=== PATIENT | male | born 1975 | race Caucasian/White ===

== ENCOUNTER 2019-06-20 21:51 | Inpatient (IN) | payer MEDICAID, OTHER ==
[~2019-06-20] VITALS: Ht 210.8 cm; Wt 95.0 kg
[~2019-06-20 21:51] MED LIST: BLOO-1101 MC; LANT3I SC; NOVO3I SC; [UNRECOGNIZED DRUG - CODE] MC
[2019-06-20] MEDS ORDERED: KETOROLAC 30 MG INJ IM STA (23:01)
[2019-06-20] MEDS ORDERED: SODIUM CHLORIDE 0.9% 1L BAG IV* STA (23:08)
[2019-06-21] VITALS (24 sets, daily range): BP systolic 97–126; BP diastolic 60–78; PULSE 85–108; RESP 10–19; Ht 210.8 cm; Wt 95.0 kg
[2019-06-21] MEDS ORDERED: INSULIN LISPRO 100 UNIT/ML VIAL SC STA (00:13)
[2019-06-21] MEDS ORDERED: VANCOMYCIN 1 GM (PMX) 250 ML IVPB ONE (01:00)
[2019-06-21] MEDS ORDERED: SOD CHLORIDE 0.9% IV ONE (01:00)
[2019-06-21] MEDS ORDERED: PIPER-TAZO 3.375 GM IV (PMX) 100 ML IVPB ONE (01:00)
[2019-06-21] MEDS ORDERED: IOHEXOL 300MG/ML 150 ML BTL ONE (01:34)
[2019-06-21] MEDS ORDERED: SOD CHLORIDE 0.9% 100 ML ONE (01:34)
[2019-06-21] MEDS ORDERED: morphine 2 MG INJ IV ONE (03:34)
[2019-06-21] MEDS ORDERED: ONDANSETRON 4 MG INJ IV ONE (03:34)
[2019-06-21] MEDS ORDERED: ONDANSETRON 4 MG INJ IV PRN ×2 (04:30→15:30)
[2019-06-21] MEDS ORDERED: NACL 0.9% 3 ML SYG IV SCH (04:30)
[2019-06-21] MEDS ORDERED: ACETAMINOPHEN 325 MG TAB PO PRN (04:30)
[2019-06-21] MEDS: SOD CHLORIDE 0.9% 1,000 ML IV SCH ×2 (06:43→12:28)
[2019-06-21] MEDS ORDERED: GLUCOSE GEL 15 GRAM TUBE BUCCAL PRN (07:30)
[2019-06-21] MEDS ORDERED: DEXTROSE 50% 50 ML SYRINGE IV PRN ×2 (07:30)
[2019-06-21] MEDS ORDERED: GLUCAGON 1 MG INJ IM PRN (07:30)
[2019-06-21] MEDS ORDERED: GLUCOSE GEL 15 GRAM TUBE PO PRN ×2 (07:30)
[2019-06-21] MEDS: morphine 2 MG INJ IV PRN (09:35)
[2019-06-21] MEDS: MEROPENEM 500MG/50 ML (PMX) 50 ML IVPB SCH ×2 (09:35→20:09)
[2019-06-21] MEDS: INSULIN ASPART [NOVOLOG] 3 ML PEN SC SCH ×5 (09:45→20:12)
[2019-06-21] MEDS ORDERED: NEOSTIGMINE 3 MG/3 ML SYRINGE ONE (14:30)
[2019-06-21] MEDS ORDERED: ONDANSETRON 4 MG INJ ONE (14:30)
[2019-06-21] MEDS ORDERED: FENTAnyl 50 MCG/ML VIAL ONE (14:30)
[2019-06-21] MEDS ORDERED: MIDAZOLAM 1 MG/ML 2 ML INJ ONE (14:30)
[2019-06-21] MEDS ORDERED: SUCCINYLCHOLINE CHLORIDE 100 MG/5 ML SYG IV ONE (14:30)
[2019-06-21] MEDS ORDERED: GLYCOPYRROLATE 0.4 MG INJ ONE (14:30)
[2019-06-21] MEDS ORDERED: LIDOCAINE 2% (SDV) 5 ML INJ ONE (14:30)
[2019-06-21] MEDS ORDERED: PROPOFOL 200 MG INJ ONE (14:30)
[2019-06-21] MEDS ORDERED: FAMOTIDINE 20 MG INJ ONE (14:31)
[2019-06-21] MEDS ORDERED: POLYMYXIN/BACITRACIN 1L IRRIG IRR ONE (15:08)
[2019-06-21] MEDS ORDERED: HYDROmorphONE 2 MG/ML SYG ONE (15:13)
[2019-06-21] MEDS ORDERED: KETOROLAC 30 MG INJ ONE (15:29)
[2019-06-21] MEDS ORDERED: KETAMINE (50 MG/ML) 10 ML VIAL ONE (15:29)
[2019-06-21] MEDS ORDERED: FENTAnyl 50 MCG/ML VIAL IV PRN ×2 (15:30)
[2019-06-21] MEDS ORDERED: HYDROmorphONE 1 MG/5 ML IV SYRINGE IV PRN ×2 (15:30)
[2019-06-21] MEDS ORDERED: METOCLOPRAMIDE 10 MG INJ IV PRN (15:30)
[2019-06-21] MEDS ORDERED: OXYCODONE/ACETAMINOPHEN (5/325) TAB PO PRN ×2 (15:30)
[2019-06-21] MEDS ORDERED: LABETALOL HCL 20MG INJ IV PRN (15:30)
[2019-06-21] MEDS ORDERED: ACETAMINOPHEN 1000MG/100ML IV 100 ML IVPB ONE (17:00)
[2019-06-21] MEDS ORDERED: INSULIN GLARGINE [LANTus] (100 UNITS/ML) SYG SC SCH (20:00)
[2019-06-22] MEDS: ACCU-CHEK XX SCH (02:00)
[2019-06-22] MEDS: SOD CHLORIDE 0.9% 1,000 ML IV SCH ×2 (02:00→09:28)
[2019-06-22] MEDS ORDERED: INSULIN ASPART [NOVOLOG] 3 ML PEN SC ONE (02:50)
[2019-06-22] MEDS: morphine 2 MG INJ IV PRN ×3 (02:55→21:55)
[2019-06-22] MEDS ORDERED: ACCU-CHEK XX ONE (05:00)
[2019-06-22] MEDS: HYDROCODONE/APAP (5/325) TAB PO PRN ×2 (05:30→13:59)
[2019-06-22 07:27] VITALS: BP 116/64; PULSE 103; RESP 15
[2019-06-22] MEDS: INSULIN ASPART [NOVOLOG] 3 ML PEN SC SCH ×7 (08:22→21:00)
[2019-06-22] MEDS: MEROPENEM 500MG/50 ML (PMX) 50 ML IVPB SCH ×2 (09:28→20:47)
[2019-06-22] MEDS ORDERED: DAKINS 0.0125%(1/40) 473 ML SOLUTION TP ONE (13:00)
[2019-06-22] MEDS ORDERED: POTASSIUM PHOSPHATE 20 MEQ in SOD CHLORIDE 0.9% 250 ML IVPB ONE (13:00)
[2019-06-22 15:00] VITALS: BP 110/67; PULSE 94; RESP 16
[2019-06-22] MEDS ORDERED: INSULIN ASPART [NOVOLOG] 3 ML PEN SC SCH (17:55)
[2019-06-22 19:58] VITALS: BP 118/70; PULSE 92; RESP 18
[2019-06-22] MEDS ORDERED: INSULIN GLARGINE [LANTus] (100 UNITS/ML) SYG SC SCH (20:00)
[2019-06-22] MEDS: INSULIN GLARGINE [LANTus] (100 UNITS/ML) SYG SC SCH (20:57)
[2019-06-23] MEDS: SOD CHLORIDE 0.9% 1,000 ML IV SCH ×3 (00:41→16:00)
[2019-06-23] MEDS: HYDROCODONE/APAP (5/325) TAB PO PRN ×2 (00:45→18:17)
[2019-06-23] MEDS: ACCU-CHEK XX SCH (02:00)
[2019-06-23 02:04] VITALS: BP 123/69; PULSE 99; RESP 18
[2019-06-23 07:37] VITALS: BP 120/68; PULSE 112; RESP 18
[2019-06-23] MEDS: INSULIN ASPART [NOVOLOG] 3 ML PEN SC SCH ×7 (09:11→20:35)
[2019-06-23] MEDS: DAKINS 0.0125%(1/40) 473 ML SOLUTION TP SCH (09:12)
[2019-06-23] MEDS: MEROPENEM 500MG/50 ML (PMX) 50 ML IVPB SCH ×2 (09:16→22:14)
[2019-06-23] MEDS: metroNIDAZOLE 500 MG/NS (PMX) 100 ML IVPB SCH ×3 (12:04→23:08)
[2019-06-23] MEDS: morphine 2 MG INJ IV PRN (12:10)
[2019-06-23 14:12] VITALS: BP 123/70; PULSE 101; RESP 18
[2019-06-23] MEDS: INSULIN GLARGINE [LANTus] (100 UNITS/ML) SYG SC SCH (20:34)
[2019-06-23 20:43] VITALS: BP 127/70; PULSE 96; RESP 18
[2019-06-24] MEDS: SOD CHLORIDE 0.9% 1,000 ML IV SCH (01:05)
[2019-06-24] MEDS: ACCU-CHEK XX SCH (01:41)
[2019-06-24 02:10] VITALS: BP 130/80; PULSE 97; RESP 18
[2019-06-24] MEDS: FLUCONAZOLE 200 MG (PMX) 100 ML IVPB SCH (02:30)
[2019-06-24] MEDS: AMPICILLIN/SULB 3 GM/NS (PMX) 100 ML IVPB SCH ×4 (05:07→23:35)
[2019-06-24] MEDS: HYDROCODONE/APAP (5/325) TAB PO PRN ×3 (05:12→23:45)
[2019-06-24 07:24] VITALS: BP 138/81; PULSE 87; RESP 16
[2019-06-24] MEDS: INSULIN ASPART [NOVOLOG] 3 ML PEN SC SCH ×7 (08:38→20:32)
[2019-06-24] MEDS: DAKINS 0.0125%(1/40) 473 ML SOLUTION TP SCH (08:39)
[2019-06-24] MEDS ORDERED: SENNA TAB PO PRN (10:30)
[2019-06-24] MEDS: morphine 2 MG INJ IV PRN (11:42)
[2019-06-24 14:20] VITALS: BP 132/79; PULSE 92; RESP 18
[2019-06-24 20:15] VITALS: BP 115/73; PULSE 86; RESP 18
[2019-06-24 20:20] VITALS: BP 115/73; PULSE 86; RESP 18
[2019-06-24] MEDS: INSULIN GLARGINE [LANTus] (100 UNITS/ML) SYG SC SCH (20:31)
[2019-06-24] MEDS: SENNA TAB PO SCH (20:31)
[2019-06-25] MEDS: FLUCONAZOLE 200 MG (PMX) 100 ML IVPB SCH (01:15)
[2019-06-25] MEDS: ACCU-CHEK XX SCH (02:00)
[2019-06-25] MEDS: AMPICILLIN/SULB 3 GM/NS (PMX) 100 ML IVPB SCH ×4 (05:17→23:27)
[2019-06-25] MEDS: morphine 2 MG INJ IV PRN (07:41)
[2019-06-25 07:44] VITALS: BP 118/75; PULSE 78; RESP 17
[2019-06-25] MEDS: DAKINS 0.0125%(1/40) 473 ML SOLUTION TP SCH (07:44)
[2019-06-25] MEDS: SENNA TAB PO SCH ×2 (08:56→21:00)
[2019-06-25] MEDS: INSULIN ASPART [NOVOLOG] 3 ML PEN SC SCH ×7 (08:59→21:00)
[2019-06-25 14:37] VITALS: BP 114/68; PULSE 84; RESP 20
[2019-06-25] MEDS: HYDROCODONE/APAP (5/325) TAB PO PRN (18:38)
[2019-06-25 19:40] VITALS: BP 119/73; PULSE 83; RESP 18
[2019-06-25] MEDS: INSULIN GLARGINE [LANTus] (100 UNITS/ML) SYG SC SCH (21:37)
[2019-06-26] VITALS (17 sets, daily range): BP systolic 115–148; BP diastolic 73–104; PULSE 73–100; RESP 12–80
[2019-06-26] MEDS: FLUCONAZOLE 200 MG (PMX) 100 ML IVPB SCH (01:05)
[2019-06-26] MEDS: ACCU-CHEK XX SCH (01:14)
[2019-06-26] MEDS: AMPICILLIN/SULB 3 GM/NS (PMX) 100 ML IVPB SCH ×4 (05:10→23:07)
[2019-06-26] MEDS: HYDROCODONE/APAP (5/325) TAB PO PRN ×2 (05:17→22:44)
[2019-06-26] MEDS: DAKINS 0.0125%(1/40) 473 ML SOLUTION TP SCH (08:49)
[2019-06-26] MEDS: SENNA TAB PO SCH ×2 (08:49→22:45)
[2019-06-26] MEDS: INSULIN ASPART [NOVOLOG] 3 ML PEN SC SCH ×6 (08:49→17:50)
[2019-06-26] MEDS: morphine 2 MG INJ IV PRN ×2 (10:19→17:46)
[2019-06-26] MEDS ORDERED: POTASSIUM CHLORIDE 20 MEQ POWDER FOR ORAL SOLN PO ONE (10:30)
[2019-06-26] MEDS ORDERED: HYDROGEN PEROXIDE 118 ML ONE (20:09)
[2019-06-26] MEDS ORDERED: FENTAnyl 50 MCG/ML VIAL ONE (20:24)
[2019-06-26] MEDS ORDERED: PROPOFOL 20 ML ONE (21:15)
[2019-06-26] MEDS ORDERED: LIDOCAINE 100 MG SYRINGE ONE (21:15)
[2019-06-26] MEDS ORDERED: SUCCINYLCHOLINE CHLORIDE 100 MG/5 ML SYG IV ONE (21:15)
[2019-06-26] MEDS ORDERED: ROCURONIUM 50 MG INJ ONE (21:15)
[2019-06-26] MEDS ORDERED: SUGAMMADEX SODIUM 200 MG/2 ML VIAL IV ONE (21:15)
[2019-06-26] MEDS ORDERED: POLYMYXIN/BACITRACIN 1L IRRIG IRR ONE (21:21)
[2019-06-26] MEDS: INSULIN GLARGINE [LANTus] (100 UNITS/ML) SYG SC SCH (22:53)
[2019-06-27] MEDS: ACCU-CHEK XX SCH (00:06)
[2019-06-27 00:37] VITALS: BP 126/78; PULSE 82; RESP 20
[2019-06-27] MEDS: FLUCONAZOLE 200 MG (PMX) 100 ML IVPB SCH (00:42)
[2019-06-27 05:00] VITALS: BP 110/76; PULSE 75; RESP 18
[2019-06-27] MEDS: HYDROCODONE/APAP (5/325) TAB PO PRN ×3 (05:11→22:02)
[2019-06-27] MEDS: AMPICILLIN/SULB 3 GM/NS (PMX) 100 ML IVPB SCH ×4 (05:11→23:10)
[2019-06-27] MEDS: INSULIN ASPART [NOVOLOG] 3 ML PEN SC SCH ×7 (07:20→21:00)
[2019-06-27 08:17] VITALS: BP 115/72; PULSE 73; RESP 19
[2019-06-27] MEDS: SENNA TAB PO SCH ×2 (09:02→20:37)
[2019-06-27] MEDS: morphine 2 MG INJ IV PRN (10:28)
[2019-06-27] MEDS: DAKINS 0.0125%(1/40) 473 ML SOLUTION TP SCH (10:29)
[2019-06-27 13:48] VITALS: BP 114/65; PULSE 78; RESP 18
[2019-06-27 19:50] VITALS: BP 122/70; PULSE 82; RESP 18
[2019-06-27] MEDS: INSULIN GLARGINE [LANTus] (100 UNITS/ML) SYG SC SCH (20:00)
[2019-06-27] MEDS: metroNIDAZOLE 500 MG TAB PO SCH (22:01)
[2019-06-28] MEDS: FLUCONAZOLE 200 MG (PMX) 100 ML IVPB SCH (00:27)
[2019-06-28] MEDS: ACCU-CHEK XX SCH (00:39)
[2019-06-28 02:40] VITALS: BP 128/71; PULSE 71; RESP 18
[2019-06-28] MEDS: metroNIDAZOLE 500 MG TAB PO SCH ×2 (05:26→13:34)
[2019-06-28] MEDS: AMPICILLIN/SULB 3 GM/NS (PMX) 100 ML IVPB SCH ×4 (05:26→23:38)
[2019-06-28] MEDS: HYDROCODONE/APAP (5/325) TAB PO PRN ×2 (05:27→18:42)
[2019-06-28 08:12] VITALS: BP 119/73; PULSE 91; RESP 18
[2019-06-28] MEDS: INSULIN ASPART [NOVOLOG] 3 ML PEN SC SCH ×7 (08:30→21:00)
[2019-06-28] MEDS: SENNA TAB PO SCH ×2 (08:33→20:35)
[2019-06-28] MEDS: morphine 2 MG INJ IV PRN (10:47)
[2019-06-28] MEDS: DAKINS 0.0125%(1/40) 473 ML SOLUTION TP SCH (10:50)
[2019-06-28 15:08] VITALS: BP 122/74; PULSE 88; RESP 18
[2019-06-28 19:58] VITALS: BP 111/70; PULSE 77; RESP 20
[2019-06-28] MEDS: INSULIN GLARGINE [LANTus] (100 UNITS/ML) SYG SC SCH (20:37)
[2019-06-29] MEDS: FLUCONAZOLE 200 MG (PMX) 100 ML IVPB SCH (00:51)
[2019-06-29] MEDS: ACCU-CHEK XX SCH (02:00)
[2019-06-29 02:39] VITALS: BP 118/72; PULSE 72; RESP 20
[2019-06-29] MEDS: AMPICILLIN/SULB 3 GM/NS (PMX) 100 ML IVPB SCH ×4 (06:01→23:36)
[2019-06-29 08:14] VITALS: BP 112/70; PULSE 82; RESP 18
[2019-06-29] MEDS: DAKINS 0.0125%(1/40) 473 ML SOLUTION TP SCH (08:42)
[2019-06-29] MEDS: INSULIN ASPART [NOVOLOG] 3 ML PEN SC SCH ×7 (08:43→20:24)
[2019-06-29] MEDS: SENNA TAB PO SCH ×2 (08:43→20:17)
[2019-06-29 15:09] VITALS: BP 112/63; PULSE 86; RESP 18
[2019-06-29 19:20] VITALS: BP 127/68; PULSE 78; RESP 18
[2019-06-29] MEDS: HYDROCODONE/APAP (5/325) TAB PO PRN (20:17)
[2019-06-29] MEDS: INSULIN GLARGINE [LANTus] (100 UNITS/ML) SYG SC SCH (20:22)
[2019-06-30] MEDS: FLUCONAZOLE 200 MG (PMX) 100 ML IVPB SCH (00:48)
[2019-06-30] MEDS: ACCU-CHEK XX SCH (00:57)
[2019-06-30 02:00] VITALS: BP 103/66; PULSE 70; RESP 18
[2019-06-30] MEDS: AMPICILLIN/SULB 3 GM/NS (PMX) 100 ML IVPB SCH ×4 (05:46→23:55)
[2019-06-30 08:04] VITALS: BP 127/80; PULSE 68; RESP 19
[2019-06-30] MEDS: INSULIN ASPART [NOVOLOG] 3 ML PEN SC SCH ×7 (08:24→21:00)
[2019-06-30] MEDS: DAKINS 0.0125%(1/40) 473 ML SOLUTION TP SCH (08:24)
[2019-06-30] MEDS: SENNA TAB PO SCH ×2 (08:24→21:00)
[2019-06-30 14:05] VITALS: BP 118/68; RESP 18
[2019-06-30] MEDS: HYDROCODONE/APAP (5/325) TAB PO PRN (18:31)
[2019-06-30 19:53] VITALS: BP 116/71; PULSE 76; RESP 18
[2019-06-30] MEDS: INSULIN GLARGINE [LANTus] (100 UNITS/ML) SYG SC SCH (21:27)
[2019-07-01] MEDS: FLUCONAZOLE 200 MG (PMX) 100 ML IVPB SCH (01:09)
[2019-07-01 01:37] VITALS: BP 110/67; PULSE 75; RESP 18
[2019-07-01] MEDS: ACCU-CHEK XX SCH (02:00)
[2019-07-01] MEDS: AMPICILLIN/SULB 3 GM/NS (PMX) 100 ML IVPB SCH ×4 (05:03→23:08)
[2019-07-01 07:29] VITALS: BP 118/72; PULSE 71; RESP 18
[2019-07-01] MEDS: morphine 2 MG INJ IV PRN (07:39)
[2019-07-01] MEDS: SENNA TAB PO SCH ×2 (08:42→20:04)
[2019-07-01] MEDS: INSULIN ASPART [NOVOLOG] 3 ML PEN SC SCH ×7 (08:44→20:04)
[2019-07-01] MEDS: DAKINS 0.0125%(1/40) 473 ML SOLUTION TP SCH (08:46)
[2019-07-01 14:42] VITALS: BP 122/74; PULSE 78; RESP 19
[2019-07-01] MEDS: HYDROCODONE/APAP (5/325) TAB PO PRN (17:55)
[2019-07-01 19:54] VITALS: BP 118/68; PULSE 71; RESP 18
[2019-07-01] MEDS: INSULIN GLARGINE [LANTus] (100 UNITS/ML) SYG SC SCH (20:03)
[2019-07-02] MEDS: FLUCONAZOLE 200 MG (PMX) 100 ML IVPB SCH (00:38)
[2019-07-02] MEDS: ACCU-CHEK XX SCH (02:00)
[2019-07-02 03:18] VITALS: BP 124/74; PULSE 70; RESP 18
[2019-07-02] MEDS: AMPICILLIN/SULB 3 GM/NS (PMX) 100 ML IVPB SCH ×3 (05:37→18:16)
[2019-07-02 08:20] VITALS: BP 123/72; PULSE 72; RESP 18
[2019-07-02] MEDS: INSULIN ASPART [NOVOLOG] 3 ML PEN SC SCH ×7 (08:30→20:34)
[2019-07-02] MEDS: SENNA TAB PO SCH ×2 (08:59→20:33)
[2019-07-02] MEDS: DAKINS 0.0125%(1/40) 473 ML SOLUTION TP SCH (09:00)
[2019-07-02] MEDS: morphine 2 MG INJ IV PRN (12:18)
[2019-07-02 15:38] VITALS: BP 123/70; PULSE 74; RESP 18
[2019-07-02] MEDS: HYDROCODONE/APAP (5/325) TAB PO PRN ×2 (18:20→22:58)
[2019-07-02] MEDS ORDERED: INSULIN GLARGINE [LANTus] (100 UNITS/ML) SYG SC SCH (20:00)
[2019-07-02 20:11] VITALS: BP 121/70; PULSE 74; RESP 20
[2019-07-03] MEDS: AMPICILLIN/SULB 3 GM/NS (PMX) 100 ML IVPB SCH ×5 (00:16→23:45)
[2019-07-03] MEDS: ACCU-CHEK XX SCH (02:00)
[2019-07-03] MEDS: FLUCONAZOLE 200 MG (PMX) 100 ML IVPB SCH (02:35)
[2019-07-03 02:59] VITALS: BP 124/72; PULSE 77; RESP 18
[2019-07-03 03:47] VITALS: BP 122/66; PULSE 61
[2019-07-03] MEDS: HYDROCODONE/APAP (5/325) TAB PO PRN ×2 (06:34→20:24)
[2019-07-03 07:39] VITALS: BP 99/63; PULSE 69; RESP 17
[2019-07-03] MEDS: INSULIN ASPART [NOVOLOG] 3 ML PEN SC SCH ×7 (08:59→20:29)
[2019-07-03] MEDS: SENNA TAB PO SCH ×2 (09:01→20:24)
[2019-07-03 13:50] VITALS: BP 104/62; PULSE 65; RESP 18
[2019-07-03] MEDS: morphine 2 MG INJ IV PRN (14:49)
[2019-07-03] MEDS: DAKINS 0.0125%(1/40) 473 ML SOLUTION TP SCH (14:50)
[2019-07-03 19:40] VITALS: BP 116/72; PULSE 70; RESP 20
[2019-07-03] MEDS: INSULIN GLARGINE [LANTus] (100 UNITS/ML) SYG SC SCH (20:27)
[2019-07-04] MEDS: ACCU-CHEK XX SCH (02:00)
[2019-07-04 02:20] VITALS: BP 104/57; PULSE 70; RESP 18
[2019-07-04] MEDS: AMPICILLIN/SULB 3 GM/NS (PMX) 100 ML IVPB SCH ×3 (05:37→17:47)
[2019-07-04] MEDS: HYDROCODONE/APAP (5/325) TAB PO PRN ×3 (05:39→18:27)
[2019-07-04 08:16] VITALS: BP 104/69; PULSE 74; RESP 18
[2019-07-04] MEDS: FLUCONAZOLE 200 MG TAB PO SCH (08:35)
[2019-07-04] MEDS: SENNA TAB PO SCH ×2 (08:35→21:02)
[2019-07-04] MEDS: INSULIN ASPART [NOVOLOG] 3 ML PEN SC SCH ×7 (08:37→21:00)
[2019-07-04] MEDS: DAKINS 0.0125%(1/40) 473 ML SOLUTION TP SCH (11:43)
[2019-07-04] MEDS: morphine 2 MG INJ IV PRN (11:43)
[2019-07-04 14:39] VITALS: BP 107/65; PULSE 73; RESP 18
[2019-07-04 19:20] VITALS: BP 109/64; PULSE 78; RESP 18
[2019-07-04] MEDS: INSULIN GLARGINE [LANTus] (100 UNITS/ML) SYG SC SCH (21:02)
[2019-07-05] MEDS: AMPICILLIN/SULB 3 GM/NS (PMX) 100 ML IVPB SCH ×4 (00:36→17:31)
[2019-07-05 01:58] VITALS: BP 102/56; PULSE 73; RESP 18
[2019-07-05] MEDS: ACCU-CHEK XX SCH (02:00)
[2019-07-05 08:06] VITALS: BP 120/71; PULSE 75; RESP 18
[2019-07-05] MEDS: SENNA TAB PO SCH ×2 (08:15→20:45)
[2019-07-05] MEDS: HYDROCODONE/APAP (5/325) TAB PO PRN ×2 (08:15→18:54)
[2019-07-05] MEDS: FLUCONAZOLE 200 MG TAB PO SCH (08:15)
[2019-07-05] MEDS: INSULIN ASPART [NOVOLOG] 3 ML PEN SC SCH ×7 (08:48→21:00)
[2019-07-05] MEDS: morphine 2 MG INJ IV PRN (13:18)
[2019-07-05] MEDS: DAKINS 0.0125%(1/40) 473 ML SOLUTION TP SCH (17:31)
[2019-07-05 19:30] VITALS: BP 120/70; PULSE 74; RESP 20
[2019-07-05] MEDS: INSULIN GLARGINE [LANTus] (100 UNITS/ML) SYG SC SCH (20:47)
[2019-07-06] MEDS: AMPICILLIN/SULB 3 GM/NS (PMX) 100 ML IVPB SCH ×4 (01:37→18:20)
[2019-07-06] MEDS: HYDROCODONE/APAP (5/325) TAB PO PRN ×3 (01:40→20:11)
[2019-07-06] MEDS: ACCU-CHEK XX SCH (02:00)
[2019-07-06 02:25] VITALS: BP 108/74; PULSE 77; RESP 20
[2019-07-06] MEDS: INSULIN ASPART [NOVOLOG] 3 ML PEN SC SCH ×7 (07:20→21:00)
[2019-07-06 07:58] VITALS: BP 100/63; PULSE 72; RESP 18
[2019-07-06] MEDS: SENNA TAB PO SCH ×2 (08:44→20:11)
[2019-07-06] MEDS: FLUCONAZOLE 200 MG TAB PO SCH (08:44)
[2019-07-06] MEDS: DAKINS 0.0125%(1/40) 473 ML SOLUTION TP SCH (08:48)
[2019-07-06 14:24] VITALS: BP 107/67; PULSE 66; RESP 22
[2019-07-06] MEDS: morphine 2 MG INJ IV PRN (15:00)
[2019-07-06 19:57] VITALS: BP 117/71; PULSE 75; RESP 18
[2019-07-06] MEDS: INSULIN GLARGINE [LANTus] (100 UNITS/ML) SYG SC SCH (21:14)
[2019-07-07] MEDS: AMPICILLIN/SULB 3 GM/NS (PMX) 100 ML IVPB SCH ×5 (00:30→23:34)
[2019-07-07] MEDS: ACCU-CHEK XX SCH ×2 (02:00→23:43)
[2019-07-07 02:04] VITALS: BP_SYST 102; BP_SYST 90; BP_DIAS 55; BP_DIAS 60; PULSE 84; RESP 18
[2019-07-07] MEDS: HYDROCODONE/APAP (5/325) TAB PO PRN ×2 (06:08→17:57)
[2019-07-07] MEDS: INSULIN ASPART [NOVOLOG] 3 ML PEN SC SCH ×7 (07:20→21:00)
[2019-07-07 07:29] VITALS: BP 102/64; PULSE 78; RESP 18
[2019-07-07] MEDS: FLUCONAZOLE 200 MG TAB PO SCH (08:42)
[2019-07-07] MEDS: SENNA TAB PO SCH ×2 (08:42→21:03)
[2019-07-07] MEDS: DAKINS 0.0125%(1/40) 473 ML SOLUTION TP SCH (08:43)
[2019-07-07] MEDS: morphine 2 MG INJ IV PRN (13:58)
[2019-07-07 15:58] VITALS: BP 113/65; PULSE 73; RESP 18
[2019-07-07] MEDS: INSULIN GLARGINE [LANTus] (100 UNITS/ML) SYG SC SCH (21:05)
[2019-07-08] MEDS: HYDROCODONE/APAP (5/325) TAB PO PRN ×2 (01:14→16:20)
[2019-07-08 02:18] VITALS: BP 105/68; PULSE 74; RESP 18
[2019-07-08] MEDS: AMPICILLIN/SULB 3 GM/NS (PMX) 100 ML IVPB SCH ×3 (05:32→17:37)
[2019-07-08] MEDS: INSULIN ASPART [NOVOLOG] 3 ML PEN SC SCH ×7 (07:20→20:31)
[2019-07-08 07:54] VITALS: BP 104/68; PULSE 70; RESP 18
[2019-07-08] MEDS: morphine 2 MG INJ IV PRN (08:12)
[2019-07-08] MEDS: DAKINS 0.0125%(1/40) 473 ML SOLUTION TP SCH (08:32)
[2019-07-08] MEDS: SENNA TAB PO SCH ×2 (08:39→20:31)
[2019-07-08] MEDS: FLUCONAZOLE 200 MG TAB PO SCH (08:39)
[2019-07-08 13:55] VITALS: BP 104/67; PULSE 71; RESP 18
[2019-07-08 19:48] VITALS: BP 115/68; PULSE 68; RESP 18
[2019-07-08] MEDS: INSULIN GLARGINE [LANTus] (100 UNITS/ML) SYG SC SCH (20:35)
[2019-07-09] MEDS: AMPICILLIN/SULB 3 GM/NS (PMX) 100 ML IVPB SCH ×5 (00:16→23:46)
[2019-07-09] MEDS: ACCU-CHEK XX SCH (01:43)
[2019-07-09 02:07] VITALS: BP 114/72; PULSE 73; RESP 18
[2019-07-09] MEDS: INSULIN ASPART [NOVOLOG] 3 ML PEN SC SCH ×7 (07:20→21:00)
[2019-07-09 08:02] VITALS: BP 126/73; PULSE 72; RESP 18
[2019-07-09] MEDS: FLUCONAZOLE 200 MG TAB PO SCH (08:29)
[2019-07-09] MEDS: SENNA TAB PO SCH ×2 (08:29→20:46)
[2019-07-09] MEDS: HYDROCODONE/APAP (5/325) TAB PO PRN ×2 (08:38→17:38)
[2019-07-09] MEDS: DAKINS 0.0125%(1/40) 473 ML SOLUTION TP SCH (12:45)
[2019-07-09 15:33] VITALS: BP 117/73; PULSE 82; RESP 18
[2019-07-09 19:25] VITALS: BP 108/64; PULSE 70; RESP 20
[2019-07-09] MEDS: INSULIN GLARGINE [LANTus] (100 UNITS/ML) SYG SC SCH (20:00)
[2019-07-09] MEDS ORDERED: INSULIN GLARGINE [LANTus] (100 UNITS/ML) SYG SC ONE (22:00)
[2019-07-10] VITALS (18 sets, daily range): BP systolic 96–131; BP diastolic 60–83; PULSE 62–80; RESP 10–21
[2019-07-10] MEDS: ACCU-CHEK XX SCH ×2 (01:47→23:52)
[2019-07-10] MEDS: AMPICILLIN/SULB 3 GM/NS (PMX) 100 ML IVPB SCH ×3 (05:30→17:49)
[2019-07-10] MEDS: INSULIN ASPART [NOVOLOG] 3 ML PEN SC SCH ×7 (08:48→20:42)
[2019-07-10] MEDS: FLUCONAZOLE 200 MG TAB PO SCH (08:50)
[2019-07-10] MEDS: SENNA TAB PO SCH ×2 (08:50→21:16)
[2019-07-10] MEDS: DAKINS 0.0125%(1/40) 473 ML SOLUTION TP SCH (08:50)
[2019-07-10] MEDS: HYDROCODONE/APAP (5/325) TAB PO PRN (08:54)
[2019-07-10] MEDS ORDERED: hydrALAzine 20 MG INJ IV PRN (17:30)
[2019-07-10] MEDS ORDERED: HYDROmorphONE 1 MG/5 ML IV SYRINGE IV PRN ×3 (17:30)
[2019-07-10] MEDS ORDERED: MEPERIDINE 25 MG INJ IV PRN (17:30)
[2019-07-10] MEDS ORDERED: ONDANSETRON 4 MG INJ IV PRN (17:30)
[2019-07-10] MEDS ORDERED: LABETALOL HCL 20MG INJ IV PRN (17:30)
[2019-07-10] MEDS ORDERED: FENTAnyl 50 MCG/ML VIAL IV PRN ×3 (17:30)
[2019-07-10] MEDS ORDERED: DIPHENHYDRAMINE 50 MG INJ IV PRN (17:30)
[2019-07-10] MEDS ORDERED: PROPOFOL 20 ML ONE (17:34)
[2019-07-10] MEDS ORDERED: FENTAnyl 50 MCG/ML VIAL ONE (17:34)
[2019-07-10] MEDS ORDERED: ONDANSETRON 4 MG INJ ONE (17:34)
[2019-07-10] MEDS: INSULIN GLARGINE [LANTus] (100 UNITS/ML) SYG SC SCH (20:27)
[2019-07-11] VITALS: BP 121/72; PULSE 72; RESP 20
[2019-07-11] MEDS: AMPICILLIN/SULB 3 GM/NS (PMX) 100 ML IVPB SCH ×5 (00:21→23:30)
[2019-07-11] MEDS: HYDROCODONE/APAP (5/325) TAB PO PRN ×3 (00:22→15:42)
[2019-07-11 08:14] VITALS: BP 115/72; PULSE 78; RESP 20
[2019-07-11] MEDS: SENNA TAB PO SCH ×2 (08:48→20:26)
[2019-07-11] MEDS: FLUCONAZOLE 200 MG TAB PO SCH (08:48)
[2019-07-11] MEDS: INSULIN ASPART [NOVOLOG] 3 ML PEN SC SCH ×7 (08:52→21:00)
[2019-07-11] MEDS: DAKINS 0.0125%(1/40) 473 ML SOLUTION TP SCH (08:53)
[2019-07-11] MEDS: morphine 2 MG INJ IV PRN (11:48)
[2019-07-11 13:47] VITALS: BP 116/68; PULSE 74; RESP 18
[2019-07-11 19:20] VITALS: BP 105/65; PULSE 73; RESP 18
[2019-07-11] MEDS: INSULIN GLARGINE [LANTus] (100 UNITS/ML) SYG SC SCH (20:30)
[2019-07-11] MEDS: ACCU-CHEK XX SCH (23:47)
[2019-07-12 02:20] VITALS: BP 112/66; PULSE 83; RESP 18
[2019-07-12] MEDS: AMPICILLIN/SULB 3 GM/NS (PMX) 100 ML IVPB SCH ×3 (05:24→17:47)
[2019-07-12] MEDS: HYDROCODONE/APAP (5/325) TAB PO PRN ×2 (05:29→17:51)
[2019-07-12] MEDS: INSULIN ASPART [NOVOLOG] 3 ML PEN SC SCH ×7 (07:20→21:00)
[2019-07-12 07:42] VITALS: BP 101/65; PULSE 83; RESP 18
[2019-07-12] MEDS: FLUCONAZOLE 200 MG TAB PO SCH (08:36)
[2019-07-12] MEDS: SENNA TAB PO SCH ×2 (08:36→20:53)
[2019-07-12] MEDS: morphine 2 MG INJ IV PRN (14:10)
[2019-07-12] MEDS: DAKINS 0.0125%(1/40) 473 ML SOLUTION TP SCH (14:10)
[2019-07-12 15:34] VITALS: BP 126/75; PULSE 75; RESP 18
[2019-07-12 20:49] VITALS: BP 103/65; PULSE 84; RESP 20
[2019-07-12] MEDS: INSULIN GLARGINE [LANTus] (100 UNITS/ML) SYG SC SCH (20:55)
[2019-07-12] MEDS: CIPROFLOXACIN 200 MG/D5W IVPB 100 ML IVPB SCH (20:58)
[2019-07-13] MEDS: AMPICILLIN/SULB 3 GM/NS (PMX) 100 ML IVPB SCH ×5 (00:59→23:36)
[2019-07-13] MEDS: ACCU-CHEK XX SCH (01:33)
[2019-07-13 02:05] VITALS: BP_SYST 100; BP_SYST 98; BP_DIAS 59; PULSE 74; RESP 18
[2019-07-13] MEDS: HYDROCODONE/APAP (5/325) TAB PO PRN ×4 (05:41→18:04)
[2019-07-13 07:40] VITALS: BP 110/65; PULSE 80; RESP 18
[2019-07-13] MEDS: FLUCONAZOLE 200 MG TAB PO SCH (08:37)
[2019-07-13] MEDS: CIPROFLOXACIN 200 MG/D5W IVPB 100 ML IVPB SCH ×2 (08:37→21:12)
[2019-07-13] MEDS: SENNA TAB PO SCH ×2 (08:37→21:12)
[2019-07-13] MEDS: DAKINS 0.0125%(1/40) 473 ML SOLUTION TP SCH (08:38)
[2019-07-13] MEDS: INSULIN ASPART [NOVOLOG] 3 ML PEN SC SCH ×7 (08:40→21:00)
[2019-07-13] MEDS: morphine 2 MG INJ IV PRN (13:52)
[2019-07-13 14:18] VITALS: BP 112/85; PULSE 89; RESP 18
[2019-07-13 19:58] VITALS: BP 94/62; PULSE 80; RESP 18
[2019-07-13] MEDS: INSULIN GLARGINE [LANTus] (100 UNITS/ML) SYG SC SCH (21:18)
[2019-07-14] MEDS: ACCU-CHEK XX SCH (02:00)
[2019-07-14 02:25] VITALS: BP 130/75; PULSE 89; RESP 18
[2019-07-14] MEDS: AMPICILLIN/SULB 3 GM/NS (PMX) 100 ML IVPB SCH ×4 (06:05→23:33)
[2019-07-14 08:23] VITALS: BP 103/65; PULSE 78; RESP 18
[2019-07-14] MEDS: INSULIN ASPART [NOVOLOG] 3 ML PEN SC SCH ×7 (08:42→20:43)
[2019-07-14] MEDS: SENNA TAB PO SCH ×2 (08:43→20:38)
[2019-07-14] MEDS: FLUCONAZOLE 200 MG TAB PO SCH (08:43)
[2019-07-14] MEDS: HYDROCODONE/APAP (5/325) TAB PO PRN ×2 (08:43→17:58)
[2019-07-14] MEDS: DAKINS 0.0125%(1/40) 473 ML SOLUTION TP SCH (08:45)
[2019-07-14] MEDS: CIPROFLOXACIN 200 MG/D5W IVPB 100 ML IVPB SCH (08:45)
[2019-07-14] MEDS: morphine 2 MG INJ IV PRN (12:05)
[2019-07-14 15:24] VITALS: BP 113/63; PULSE 75; RESP 18
[2019-07-14] MEDS: CIPROFLOXACIN 500 MG TAB PO SCH (17:29)
[2019-07-14 20:31] VITALS: BP 100/57; PULSE 80; RESP 18
[2019-07-14] MEDS: INSULIN GLARGINE [LANTus] (100 UNITS/ML) SYG SC SCH (20:41)
[2019-07-15] MEDS: HYDROCODONE/APAP (5/325) TAB PO PRN ×4 (00:59→18:11)
[2019-07-15] MEDS: ACCU-CHEK XX SCH (02:00)
[2019-07-15 03:00] VITALS: BP 107/57; PULSE 71; RESP 18
[2019-07-15] MEDS: CIPROFLOXACIN 500 MG TAB PO SCH ×2 (05:08→18:11)
[2019-07-15] MEDS: AMPICILLIN/SULB 3 GM/NS (PMX) 100 ML IVPB SCH ×4 (05:08→23:38)
[2019-07-15 07:22] VITALS: BP 95/52; PULSE 72; RESP 20
[2019-07-15] MEDS: INSULIN ASPART [NOVOLOG] 3 ML PEN SC SCH ×7 (08:48→21:00)
[2019-07-15] MEDS: DAKINS 0.0125%(1/40) 473 ML SOLUTION TP SCH (08:50)
[2019-07-15] MEDS: SENNA TAB PO SCH ×2 (08:50→20:49)
[2019-07-15] MEDS: FLUCONAZOLE 200 MG TAB PO SCH (08:50)
[2019-07-15] MEDS: morphine 2 MG INJ IV PRN ×2 (14:22→17:27)
[2019-07-15 15:01] VITALS: BP 124/73; PULSE 73; RESP 18
[2019-07-15 19:38] VITALS: BP 102/60; PULSE 80; RESP 18
[2019-07-15] MEDS: INSULIN GLARGINE [LANTus] (100 UNITS/ML) SYG SC SCH (20:00)
[2019-07-15] MEDS ORDERED: INSULIN GLARGINE [LANTus] (100 UNITS/ML) SYG SC ONE (21:00)
[2019-07-16] MEDS: ACCU-CHEK XX SCH (01:21)
[2019-07-16 02:04] VITALS: BP 98/55; PULSE 77; RESP 18
[2019-07-16] MEDS: AMPICILLIN/SULB 3 GM/NS (PMX) 100 ML IVPB SCH ×3 (05:51→18:00)
[2019-07-16] MEDS: CIPROFLOXACIN 500 MG TAB PO SCH ×2 (05:51→18:00)
[2019-07-16 07:46] VITALS: BP 112/70; PULSE 77; RESP 18
[2019-07-16] MEDS: INSULIN ASPART [NOVOLOG] 3 ML PEN SC SCH ×7 (08:28→21:00)
[2019-07-16] MEDS: SENNA TAB PO SCH ×2 (09:12→20:20)
[2019-07-16] MEDS: FLUCONAZOLE 200 MG TAB PO SCH (09:12)
[2019-07-16] MEDS: DAKINS 0.0125%(1/40) 473 ML SOLUTION TP SCH (09:13)
[2019-07-16] MEDS: HYDROCODONE/APAP (5/325) TAB PO PRN ×2 (09:19→20:20)
[2019-07-16 14:55] VITALS: BP 103/56; PULSE 76; RESP 18
[2019-07-16] MEDS: morphine 2 MG INJ IV PRN (15:19)
[2019-07-16 19:20] VITALS: BP 118/73; PULSE 89; RESP 18
[2019-07-16] MEDS: INSULIN GLARGINE [LANTus] (100 UNITS/ML) SYG SC SCH (20:26)
[2019-07-17] MEDS: AMPICILLIN/SULB 3 GM/NS (PMX) 100 ML IVPB SCH ×4 (00:01→17:32)
[2019-07-17] MEDS: ACCU-CHEK XX SCH ×2 (02:00→21:05)
[2019-07-17 02:05] VITALS: BP 102/58; PULSE 73; RESP 18
[2019-07-17] MEDS: CIPROFLOXACIN 500 MG TAB PO SCH ×2 (05:56→17:32)
[2019-07-17] MEDS: INSULIN ASPART [NOVOLOG] 3 ML PEN SC SCH ×7 (07:20→21:00)
[2019-07-17 07:44] VITALS: BP 112/70; PULSE 69; RESP 18
[2019-07-17] MEDS: HYDROCODONE/APAP (5/325) TAB PO PRN ×2 (08:38→17:31)
[2019-07-17] MEDS: FLUCONAZOLE 200 MG TAB PO SCH (08:38)
[2019-07-17] MEDS: SENNA TAB PO SCH ×2 (08:38→20:54)
[2019-07-17] MEDS: DAKINS 0.0125%(1/40) 473 ML SOLUTION TP SCH (08:41)
[2019-07-17] MEDS: morphine 2 MG INJ IV PRN (15:08)
[2019-07-17 15:09] VITALS: BP 103/59; PULSE 69; RESP 18
[2019-07-17 20:18] VITALS: BP 100/65; PULSE 66; RESP 20
[2019-07-17] MEDS: AMOXICILLIN/CLAV 875 MG TAB PO SCH (20:54)
[2019-07-17] MEDS: INSULIN GLARGINE [LANTus] (100 UNITS/ML) SYG SC SCH (21:03)
[2019-07-18] VITALS (22 sets, daily range): BP systolic 83–122; BP diastolic 55–80; PULSE 60–81; RESP 7–18
[2019-07-18] MEDS: CIPROFLOXACIN 500 MG TAB PO SCH ×2 (05:53→18:00)
[2019-07-18] MEDS: HYDROCODONE/APAP (5/325) TAB PO PRN (05:54)
[2019-07-18] MEDS: INSULIN ASPART [NOVOLOG] 3 ML PEN SC SCH ×7 (07:20→21:00)
[2019-07-18] MEDS: FLUCONAZOLE 200 MG TAB PO SCH (08:42)
[2019-07-18] MEDS: AMOXICILLIN/CLAV 875 MG TAB PO SCH ×2 (08:42→20:50)
[2019-07-18] MEDS: SENNA TAB PO SCH ×2 (08:42→20:50)
[2019-07-18] MEDS: DAKINS 0.0125%(1/40) 473 ML SOLUTION TP SCH (08:46)
[2019-07-18] MEDS: morphine 2 MG INJ IV PRN (15:07)
[2019-07-18] MEDS ORDERED: ONDANSETRON 4 MG INJ IV PRN (17:00)
[2019-07-18] MEDS ORDERED: MEPERIDINE 25 MG INJ IV PRN (17:00)
[2019-07-18] MEDS ORDERED: HYDROmorphONE 1 MG/5 ML IV SYRINGE IV PRN ×3 (17:00)
[2019-07-18] MEDS ORDERED: LIDOCAINE 2% (SDV) 5 ML INJ ONE (17:04)
[2019-07-18] MEDS ORDERED: MIDAZOLAM 1 MG/ML 2 ML INJ ONE (17:04)
[2019-07-18] MEDS ORDERED: PROPOFOL 20 ML ONE (17:04)
[2019-07-18] MEDS ORDERED: FENTAnyl 50 MCG/ML VIAL ONE ×2 (17:05→18:59)
[2019-07-18] MEDS ORDERED: CIPROFLOXACIN 400MG/D5W 200 ML ONE (17:07)
[2019-07-18] MEDS ORDERED: CEFAZOLIN 1 GM INJ ONE (17:47)
[2019-07-18] MEDS ORDERED: ONDANSETRON 4 MG INJ ONE (17:47)
[2019-07-18] MEDS ORDERED: DEXAMETHASONE 4 MG/ML 5 ML INJ ONE (17:47)
[2019-07-18] MEDS ORDERED: PHENYLephrine (100 MCG/ML) 10ML SYG ONE (18:16)
[2019-07-18] MEDS: INSULIN GLARGINE [LANTus] (100 UNITS/ML) SYG SC SCH (20:53)
[2019-07-19 00:31] VITALS: BP 122/65; PULSE 64; RESP 18
[2019-07-19] MEDS: ACCU-CHEK XX SCH (02:00)
[2019-07-19] MEDS: HYDROCODONE/APAP (5/325) TAB PO PRN ×3 (02:25→17:22)
[2019-07-19] MEDS: CIPROFLOXACIN 500 MG TAB PO SCH ×2 (05:05→17:24)
[2019-07-19 07:26] VITALS: BP 101/64; PULSE 71; RESP 14
[2019-07-19] MEDS: INSULIN ASPART [NOVOLOG] 3 ML PEN SC SCH ×7 (08:50→21:00)
[2019-07-19] MEDS: FLUCONAZOLE 200 MG TAB PO SCH (08:50)
[2019-07-19] MEDS: SENNA TAB PO SCH ×2 (08:50→20:50)
[2019-07-19] MEDS: AMOXICILLIN/CLAV 875 MG TAB PO SCH ×2 (08:50→20:50)
[2019-07-19] MEDS: DAKINS 0.0125%(1/40) 473 ML SOLUTION TP SCH (08:51)
[2019-07-19 15:32] VITALS: BP 100/61; PULSE 73; RESP 14
[2019-07-19 19:30] VITALS: BP 104/62; PULSE 74; RESP 16
[2019-07-19] MEDS: INSULIN GLARGINE [LANTus] (100 UNITS/ML) SYG SC SCH (20:53)
[2019-07-20] MEDS: HYDROCODONE/APAP (5/325) TAB PO PRN ×3 (00:27→21:33)
[2019-07-20] MEDS: ACCU-CHEK XX SCH (02:00)
[2019-07-20 02:30] VITALS: BP 101/61; PULSE 61; RESP 20
[2019-07-20] MEDS: CIPROFLOXACIN 500 MG TAB PO SCH ×2 (05:32→17:36)
[2019-07-20 07:15] VITALS: BP 101/69; PULSE 64; RESP 16
[2019-07-20] MEDS: AMOXICILLIN/CLAV 875 MG TAB PO SCH ×2 (08:42→20:54)
[2019-07-20] MEDS: DAKINS 0.0125%(1/40) 473 ML SOLUTION TP SCH (08:42)
[2019-07-20] MEDS: SENNA TAB PO SCH ×2 (08:43→20:54)
[2019-07-20] MEDS: FLUCONAZOLE 200 MG TAB PO SCH (08:43)
[2019-07-20] MEDS: INSULIN ASPART [NOVOLOG] 3 ML PEN SC SCH ×7 (08:46→21:00)
[2019-07-20 15:16] VITALS: BP 109/64; PULSE 62; RESP 20
[2019-07-20] MEDS: INSULIN GLARGINE [LANTus] (100 UNITS/ML) SYG SC SCH (21:01)
[2019-07-21] MEDS: ACCU-CHEK XX SCH (02:00)
[2019-07-21 02:42] VITALS: BP 116/77; PULSE 70; RESP 16
[2019-07-21] MEDS: HYDROCODONE/APAP (5/325) TAB PO PRN ×3 (03:40→22:58)
[2019-07-21] MEDS: CIPROFLOXACIN 500 MG TAB PO SCH (06:07)
[2019-07-21 07:42] VITALS: BP 104/61; PULSE 66; RESP 18
[2019-07-21] MEDS: INSULIN ASPART [NOVOLOG] 3 ML PEN SC SCH ×7 (08:15→21:00)
[2019-07-21] MEDS: AMOXICILLIN/CLAV 875 MG TAB PO SCH (08:52)
[2019-07-21] MEDS: SENNA TAB PO SCH ×2 (08:52→21:09)
[2019-07-21] MEDS: FLUCONAZOLE 200 MG TAB PO SCH (08:52)
[2019-07-21 14:14] VITALS: BP 101/60; PULSE 78; RESP 18
[2019-07-21 20:00] VITALS: BP 103/60; PULSE 79; RESP 18
[2019-07-21] MEDS: INSULIN GLARGINE [LANTus] (100 UNITS/ML) SYG SC SCH (21:14)
[2019-07-22] MEDS: ACCU-CHEK XX SCH (02:00)
[2019-07-22 02:37] VITALS: BP 120/71; PULSE 77; RESP 18
[2019-07-22] MEDS: HYDROCODONE/APAP (5/325) TAB PO PRN (07:01)
[2019-07-22 07:15] VITALS: BP 104/65; PULSE 69; RESP 18
[2019-07-22] MEDS: INSULIN ASPART [NOVOLOG] 3 ML PEN SC SCH ×7 (08:30→20:09)
[2019-07-22] MEDS: SENNA TAB PO SCH ×2 (08:54→20:09)
[2019-07-22 14:24] VITALS: BP 104/62; PULSE 77; RESP 20
[2019-07-22 19:54] VITALS: BP 105/62; PULSE 84; RESP 18
[2019-07-22] MEDS: INSULIN GLARGINE [LANTus] (100 UNITS/ML) SYG SC SCH (20:09)
[2019-07-23] MEDS: ACCU-CHEK XX SCH (02:00)
[2019-07-23 02:41] VITALS: BP 92/51; PULSE 53; RESP 18
[2019-07-23] MEDS: INSULIN ASPART [NOVOLOG] 3 ML PEN SC SCH ×7 (07:20→21:00)
[2019-07-23 07:48] VITALS: BP 109/63; PULSE 82; RESP 18
[2019-07-23] MEDS: SENNA TAB PO SCH ×2 (08:47→21:42)
[2019-07-23] MEDS: HYDROCODONE/APAP (5/325) TAB PO PRN ×2 (08:50→17:59)
[2019-07-23 14:57] VITALS: BP 90/57; PULSE 73; RESP 18
[2019-07-23 19:40] VITALS: BP 103/64; PULSE 79; RESP 20
[2019-07-23] MEDS: INSULIN GLARGINE [LANTus] (100 UNITS/ML) SYG SC SCH (21:49)
[2019-07-24] MEDS: ACCU-CHEK XX SCH (02:00)
[2019-07-24 07:28] VITALS: BP 101/60; PULSE 74; RESP 18
[2019-07-24] MEDS: SENNA TAB PO SCH ×2 (09:00→20:01)
[2019-07-24] MEDS: INSULIN ASPART [NOVOLOG] 3 ML PEN SC SCH ×7 (09:05→20:05)
[2019-07-24] MEDS: HYDROCODONE/APAP (5/325) TAB PO PRN ×2 (09:07→18:11)
[2019-07-24] MEDS: metFORMIN 500 MG TAB PO SCH ×2 (13:01→18:06)
[2019-07-24 15:03] VITALS: BP 99/63; PULSE 74; RESP 18
[2019-07-24 19:30] VITALS: BP 96/66; PULSE 89; RESP 20
[2019-07-24] MEDS ORDERED: INSULIN GLARGINE [LANTus] (100 UNITS/ML) SYG SC SCH (20:00)
[2019-07-25 02:10] VITALS: BP 114/75; PULSE 96; RESP 20
[2019-07-25] MEDS: ACCU-CHEK XX SCH (02:40)
[2019-07-25 07:43] VITALS: BP 121/64; PULSE 82; RESP 19
[2019-07-25] MEDS: metFORMIN 500 MG TAB PO SCH (08:50)
[2019-07-25] MEDS: SENNA TAB PO SCH (08:50)
[2019-07-25] MEDS: INSULIN ASPART [NOVOLOG] 3 ML PEN SC SCH ×4 (08:51→12:49)
[2019-07-25] MEDS: HYDROCODONE/APAP (5/325) TAB PO PRN (13:27)
== END 2019-07-25 13:45 | disposition home or self-care (01) | DRG 853 ==
LOC: FTE 21:51 → MS1 06-21 03:34
PROVIDERS: ADMIT Internal Medicine; ATTEND Internal Medicine
PROC: 0HBAXZZ Excision of Inguinal Skin, External Approach (ICD-10-PCS; 2019-06-21)
PROC: 0KBM0ZZ Excision of Perineum Muscle, Open Approach (ICD-10-PCS; 2019-06-26)
PROC: 0HBAXZZ Excision of Inguinal Skin, External Approach (ICD-10-PCS; 2019-07-01)
PROC: 0HBAXZZ Excision of Inguinal Skin, External Approach (ICD-10-PCS; 2019-07-04)
PROC: 0HBAXZZ Excision of Inguinal Skin, External Approach (ICD-10-PCS; 2019-07-08)
PROC: 0H99X0Z Drainage of Perineum Skin with Drainage Device, External Approach (ICD-10-PCS; principal; 2019-07-15)
PROC: 0HBAXZZ Excision of Inguinal Skin, External Approach (ICD-10-PCS; 2019-07-15)
PROC: 0VQ5XZZ Repair Scrotum, External Approach (ICD-10-PCS; 2019-07-15)
DX: A41.9 Sepsis, unspecified organism (principal); E11.10 Type 2 diabetes mellitus with ketoacidosis without coma; L02.214 Cutaneous abscess of groin; N39.0 Urinary tract infection, site not specified; E87.1 Hypo-osmolality and hyponatremia; N49.3 Fournier gangrene; B95.62 Methicillin resistant Staphylococcus aureus infection as the cause of diseases classified elsewhere; R16.0 Hepatomegaly, not elsewhere classified; D17.79 Benign lipomatous neoplasm of other sites; E86.0 Dehydration; Z91.14 Patient's other noncompliance with medication regimen
CPT/HCPCS: 36415; 71045; 74177; 76870; 80048; 80053; 80061; 81001; 82962; 83036; 83605; 83735; 84100; 84484; 85025; 85610; 85730; 86703; 87070; 87075; 87086; 87102; 87116; 87205; 88300; 88304; 93005; 93971; 96365; 96367; 96372; 97161; J0131; J0295; J0690; J0744; J1100; J1170; J1815; J1885; J2001; J2185; J2250; J2270; J2370; J2405; J2543; J2710; J3010; J3370; J7030; J7050; Q9967